=== PATIENT | female | born 1955 | race African-American/Black ===

== ENCOUNTER 2021-03-29 21:07 | Emergency (ER) | payer BC ==
[~2021-03-29] VITALS: Ht 167.6 cm; Wt 81.7 kg
[~2021-03-29 21:07] MED LIST: NOHOMEMEDICATIONS; NORFLEX100 MG PO; ULTRAM 50MG TAB50 MG PO
[2021-03-29 21:55] LABS: ABSOLUTE NEUTROPHILS 7.3 thou/uL (1.4-8.2); BASOPHILS 0.9 % (0.0-2.0); HEMOGLOBIN 11.5 gm/dL (12.0-15.0); LYMPHOCYTES 14.6 % (24.0-44.0); MCH 27.7 pg (26.0-34.0); MCHC 33.7 g/dL (28.0-37.0); MCV 82.1 fL (80.0-100.0); MONOCYTES 6.4 % (1.0-8.0); PLATELET COUNT 249 thou/uL (150-400); POLYS 75.1 % (36.0-66.0); RBC 4.14 mil/uL (4.20-5.00); RDW 14.6 % (10.5-14.5); WBC 9.7 thou/uL (4.0-11.0)
[2021-03-29 21:58] LABS: ANION GAP 10 mmol/L (7-16); BUN 16 mg/dL (7-18); CHLORIDE 106 mmol/L (98-107); CO2 26 mmol/L (21-32); CREATININE 0.9 mg/dL (0.6-1.0); GLUCOSE 108 mg/dL (74-106); POTASSIUM 3.4 mmol/L (3.5-5.1); SODIUM 142 mmol/L (136-145)
[2021-03-29 22:05] LABS: ALBUMIN 3.8 g/dL (3.4-5.0); DIRECT BILIRUBIN < 0.1 mg/dL (<0.1-0.2); LIPASE 75 U/L (73-393); SGOT 15 U/L (15-37); SGPT 14 U/L (30-65); TOTAL BILIRUBIN 0.3 mg/dL (0.2-1.0); TOTAL PROTEIN 7.6 g/dL (6.4-8.2)
[2021-03-29 23:13] LABS: URINE BILIRUBIN NEGATIVE (Negative); URINE BLOOD TRACE (Negative); URINE CLARITY CLEAR; URINE COLOR YELLOW; URINE GLUCOSE-RANDOM* NEGATIVE (Negative); URINE KETONES NEGATIVE (Negative); URINE LEUKOCYTES-REFLEX NEGATIVE (Negative); URINE NITRITE-REFLEX NEGATIVE (Negative); URINE PROTEIN (DIPSTICK) NEGATIVE (Negative); URINE SPECIFIC GRAVITY <= 1.005 (1.005-1.035); URINE UROBILINOGEN 0.2 E.U./dl (0.2-1.0)
[2021-03-30] MEDS ORDERED: ZOFRAN ODT4 MG PO (00:01)
[2021-03-30 00:22] VITALS: BP 105/51
--- NOTE | 2021-03-30 09:06 | EKG ---
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
== END 2021-03-30 00:31 | disposition home or self-care (01) ==
LOC: ER 21:07
PROVIDERS: Nurse Practitioner
DX: R11.2 Nausea with vomiting, unspecified (principal); R19.7 Diarrhea, unspecified; R10.9 Unspecified abdominal pain; Z79.899 Other long term (current) drug therapy; Z91.048 Other nonmedicinal substance allergy status